=== PATIENT | female | born 1960 | race Caucasian/White ===

== ENCOUNTER 2017-03-11 13:21 | Emergency (ER) | payer BC ==
[~2017-03-11] VITALS: Ht 165.1 cm; Wt 53.5 kg
[2017-03-11 13:38] VITALS: BP 142/84
--- NOTE | 2017-03-11 13:58 | RAD ---
Indication fall. Pain. 2 views of the left clavicle were obtained. There is a traumatic angulated fracture involving the distal third of the clavicle. No additional bony abnormality is seen. IMPRESSION: Angulated clavicular fracture
--- NOTE | 2017-03-11 14:13 | PHYS DOC ---
Past Medical History Past Medical History: CHF, Other Additional Past Medical Histor: DDD Past Surgical History: Hysterectomy Alcohol Use: None Drug Use: None Adult General Chief Complaint Chief Complaint: CLAVICLE INJURY HPI HPI Patient is a 57 year old female presents to the emergency department stating amended night she was going down a hill when she's slipped and fell. She states she landed on her left shoulder is complaining of left clavicle pain and discomfort. She states that she is taken ibuprofen at home with minimal relief. She denies any numbness or tingling down into her left hand. She does have her arm in a sling the current time. She states that she did go to her primary care physicians Dr. Martin in the center here to the emergency department. Review of Systems Review of Systems Constitutional: Denies fever or chills [] Eyes: Denies change in visual acuity, redness, or eye pain [] HENT: Denies nasal congestion or sore throat [] Respiratory: Denies cough or shortness of breath [] Cardiovascular: No additional information not addressed in HPI [] GI: Denies abdominal pain, nausea, vomiting, bloody stools or diarrhea [] : Denies dysuria or hematuria [] Musculoskeletal: Denies back pain or joint pain. Complaint of left clavicle pain Integument: Denies rash or skin lesions [] Neurologic: Denies headache, focal weakness or sensory changes [] Endocrine: Denies polyuria or polydipsia [] Current Medications Current Medications Current Medications Medications (Trade) Dose Ordered Sig/Larisa Start Time Stop Time Status Last Admin Dose Admin Acetaminophen/ Hydrocodone Bitart (Lortab 5/325) 1 tab 1X ONCE 03/11/17 14:15 03/11/17 14:16 DC 03/11/17 14:18 1 TAB Albuterol/ Ipratropium (Duoneb) 3 ml 1X ONCE 03/11/17 14:15 03/11/17 14:16 DC 03/11/17 14:18 3 ML Allergies Allergies Allergies Coded Allergies Type Severity Reaction Last Updated Verified No Known Drug Allergies 02/15/14 No Physical Exam Physical Exam Constitutional: Well developed, well nourished, no acute distress, non-toxic appearance. [] HENT: Normocephalic, atraumatic, bilateral external ears normal, oropharynx moist, no oral exudates, nose normal. [] Eyes: PERRLA, EOMI, conjunctiva normal, no discharge. [] Neck: Normal range of motion, no tenderness, supple, no stridor. [] Cardiovascular:Heart rate regular rhythm, no murmur [] Lungs & Thorax: Bilateral breath sounds coarse bilaterally. Skin: Warm, dry, no erythema, no rash. [] Back: No tenderness Extremities: No tenderness, no cyanosis, no clubbing, ROM intact, no edema. Left clavicle area appears to be bruised and swollen. Patient's left shoulder appears to be drawn inward. Peripheral pulses 2+ cap refill brisk less than 2 seconds. Neurologic: Alert and oriented X 3, normal motor function, normal sensory function, no focal deficits noted. [] Psychologic: Affect normal, judgement normal, mood normal. [] Current Patient Data Vital Signs Vital Signs Date Time Temp Pulse Resp B/P (MAP) Pulse Ox O2 Delivery O2 Flow Rate FiO2 03/11/17 14:18 Room Air 03/11/17 13:38 97.9 85 20 97 97.9 EKG EKG [] Radiology/Procedures Radiology/Procedures [][facility] [address] [place] [address] IMAGING REPORT Signed PATIENT: JACQUELINE STORM ACCOUNT: [id number] : 1960 LOCATION: ER AGE: 57 SEX: F EXAM STATUS: PRE ER ORD. PHYSICIAN: CRISTO LARSON APRN REASON: left clavicle pain PROCEDURE: CLAVICLE LEFT Indication fall. Pain. 2 views of the left clavicle were obtained. There is a traumatic angulated fracture involving the distal third of the clavicle. No additional bony abnormality is seen. IMPRESSION: Angulated clavicular fracture DICTATED and SIGNED BY: DANIELLE WESTON MD DATE: 03/11/17 1291 CC: CRISTO LARSON APRN; YUSUF CRUZ MD ~ Course & Med Decision Making Course & Med Decision Making Pertinent Labs and Imaging studies reviewed. (See chart for details) Spoke with Dr. Mendez regards to patient's x-ray. He recommends placing her in a sling which she is already in. Pain medication, and follow-up with him in the next week. Patient was provided with a DuoNeb treatment which patient's has decreased coughing and breathing much better. Patient was instructed she would be provided with hydrocodone for pain and discomfort also instructed her that this medication with cause drowsiness do not take any be alert and oriented. Patient was provided with information in regards to following up with Dr. Mendez in one week. Signs and symptoms to return back to emergency department has been provided. Patient agrees with discharge instructions treatment regimens and follow-up recommendations. [] Dragon Disclaimer Dragon Disclaimer This electronic medical record was generated, in whole or in part, using a voice recognition dictation system. Departure Departure Impression: Primary Impression: Fracture of left clavicle Disposition: HOME, SELF-CARE Condition: STABLE Referrals: YUSUF CRUZ MD (PCP) CHIO MENDEZ II, MD Patient Instructions: Clavicle Fracture, [id number] Additional Instructions: Activity as tolerated. [place] for pain and discomfort. This medication will cause drowsiness do not take any be alert and oriented. Ibuprofen 600 mg every 8 hours with food stop taking few develop an upset stomach. Ice packs on 20 minutes off 20 minutes several times a day. Wear the sling that you have currently on to help with comfort and support. Follow-up with orthopedic as you have been instructed within the next week. Return back to emergency prior signs and symptoms of become worse. Scripts Hydrocodone/Apap 5-325 (NORCO 5-325 TABLET) 1 Each Tablet 1 TAB PO PRN Q6HRS Y for PAIN, #15 TAB 0 Refills Prov: CRISTO LARSON APRN 03/11/17 CRISTO LARSON APRN Mar 11, 2017 14:13
[2017-03-11] MEDS ORDERED: HYDROcodone/APAP 5/325MG 1 TAB TABLET PO ONE (14:15)
[2017-03-11] MEDS ORDERED: IPRATRPIUM/ALBUTEROL 0.5/2.5MG 3 ML NEBU. NEB ONE (14:15)
[2017-03-11] MEDS ORDERED: HYDR-971 PO (14:33)
== END 2017-03-11 14:41 | disposition home or self-care (01) ==
LOC: ER 13:21
DX: S42.035A Nondisplaced fracture of lateral end of left clavicle, initial encounter for closed fracture (principal); Z90.710 Acquired absence of both cervix and uterus; I50.9 Heart failure, unspecified; W01.0XXA Fall on same level from slipping, tripping and stumbling without subsequent striking against object, initial encounter; Y93.89 Activity, other specified; Y99.8 Other external cause status; Y92.89 Other specified places as the place of occurrence of the external cause
CPT/HCPCS: 73000; 94250; 94640; 99284; J7620

== ENCOUNTER → 2020-04-10 | Outpatient (CLI) | payer BC ==
[~2020-04-10] MED LIST: ASPI-630 PO; BREX2TAB PO; CARV3.1210 PO; HYDR-3164 PO; MIRT30TA PO; SIMV20TA18 PO; VENL150C PO
== END | disposition home or self-care (01) ==
LOC: LAB 12:05
PROVIDERS: ATTEND Internal Medicine Gastroenterology
DX: Z01.818 Encounter for other preprocedural examination (principal); Z12.11 Encounter for screening for malignant neoplasm of colon; Z11.59 Encounter for screening for other viral diseases
CPT/HCPCS: U0003-CS

== ENCOUNTER → 2020-04-13 | Day surgery (SDC) | payer BC ==
[~2020-04-13] MED LIST changes: +IV RINGERS,LACTATED 1000ML 1,000 ML IV SCH; +LIDOCAINE 2% PF 5 ML VIAL. ONE; +PROPOFOL 10 MG/ML (20ML) VIAL. IV ONE
[2020-04-13 07:51] VITALS: BP 140/86
--- NOTE | 2020-04-13 09:10 | CONS ---
DATE OF CONSULTATION: 04/13/2020 REFERRING PHYSICIAN: Prabhu Martin MD REASON FOR CONSULTATION: History of polyps. HISTORY OF PRESENT ILLNESS: A 60-year-old female whose past medical history significant for hypertension, hyperlipidemia, history of colonic polyps, is seen for surveillance colon exam. Last exam was approximately 10 years ago, which did reveal polyps. There has been no bleeding, diarrhea, constipation, change in bowel habits. Weight is decreased due to recent depression. She is otherwise without additional complaints. PAST MEDICAL HISTORY: Depression, hyperlipidemia, hypertension. ALLERGIES: None. MEDICATIONS: Include hydrocodone, aspirin, Rexulti, carvedilol, Remeron, simvastatin, and Effexor. PAST SURGICAL HISTORY: She is status post hysterectomy, tubal ligation. SOCIAL HISTORY: She is a smoker, nondrinker. FAMILY HISTORY: Significant for breast cancer with grandmother and heart attack with her grandmother. REVIEW OF SYSTEMS: NEUROLOGIC: No stroke, migraine, neuropathy. PSYCHIATRIC: History of depression. HEMATOLOGIC: No bleeding, bruising, coagulopathy. CARDIOVASCULAR: History of hypertension. PULMONARY: History of tobaccoism. DERMATOLOGIC: No skin rashes or pruritus. HEMATOLOGIC: No bleeding, bruising, coagulopathy. ENDOCRINE: History of hyperlipidemia. MUSCULOSKELETAL: No osteoarthrosis, arthralgias, myalgias. GASTROINTESTINAL: See history of present illness. RENAL: No dysuria, frequency, hematuria. PHYSICAL EXAMINATION: GENERAL: Reveals a well-nourished, well-developed female who is alert, cooperative, in no acute distress. VITAL SIGNS: Temperature 98, pulse 98, respiratory rate 18. LUNGS: Clear. CARDIOVASCULAR: Reveals an S1, S2 without S3, S4 or appreciable murmur. ABDOMEN: Reveals a soft abdomen, normal bowel sounds, without appreciable hepatosplenomegaly. EXTREMITIES: Reveals no cyanosis, clubbing or edema with infraumbilical hysterectomy incision. ASSESSMENT: History of colonic polyps. Surveillance exam is recommended at this time. Risks and benefits of procedure including risk of hemorrhage and perforation during the operation have been discussed. The patient is willing to proceed. I would like to thank Dr. Martin for allowing us to consult the patient's care. SAQIB ROSS MD DR: SYBIL/luis eduardo JOB#: [id number] / [id number] Prabhu Parrish
--- NOTE | 2020-04-16 14:07 | PATHOLOGY ---
[facility] Accession Number: [id number] . 01 Material submitted: . PART A: splenic flexure - SPLENIC FLEXURE POLYP PART B: colon - TRANSVERSE COLON POLYP. Modifiers: transverse . 01 Clinical history: . Screening . 02 Diagnosis: A. Colon biopsies, splenic flexure polyp: - Consistent with hyperplastic polyp/prominent mucosal fold. . B. Colon biopsies, transverse colon polyp: - Tubular adenoma. . (JPM:chica; 04/16/2020) R 04/16/2020 1208 Local . 02 Comment: There is no high-grade dysplasia or evidence of malignancy. (JPM:chica; 04/16/2020) . 02 Electronically signed: . Mark Khan MD, Pathologist NPI- [id number] . 01 Gross description: . A. The specimen is received in formalin, labeled "Denk, Raiza, splenic flexure polyp" and consists of 3 fragments of pink-maki tissue measuring between 0.1 x 0.1 cm and 0.7 x 0.2 cm which are entirely submitted in A1. . B. The specimen is received in formalin, labeled "Denk, Raiza, transverse colon polyp" and consists of 3 fragments of maki tissue measuring between 0.3 x 0.3 cm and 0.4 x 0.3 cm which are entirely submitted in B1. (SDY; 04/13/2020) SYU/SYU 04/13/2020 1602 Local . 02 Pathologist provided ICD-10: D12.3, Z12.11 . 02 CPT . 018764, 476237 Specimen Comment: A courtesy copy of this report has been sent to [phone], [phone] Specimen Comment: [id number] Specimen Comment: Report sent to / Performed at: 01 [facility] [address], [place], [place] [id number] MD Devon Chopra MD Phone: [phone] Performed at: 02 [facility] [address], [place] [id number] MD Mark Khan MD Phone: [phone]
== END | disposition home or self-care (01) ==
LOC: ENDOS 05:54
PROVIDERS: ATTEND Internal Medicine Gastroenterology
DX: Z12.11 Encounter for screening for malignant neoplasm of colon (principal); D12.3 Benign neoplasm of transverse colon; I10 Essential (primary) hypertension; E78.5 Hyperlipidemia, unspecified; F32.9 Major depressive disorder, single episode, unspecified; Z86.010 Personal history of colon polyps; Z98.51 Tubal ligation status; Z90.710 Acquired absence of both cervix and uterus; Z98.890 Other specified postprocedural states; Z87.891 Personal history of nicotine dependence
CPT/HCPCS: 45380; 45385; 88305; J2704